=== PATIENT | male | born 1980 | race Two or more races ===

== ENCOUNTER 2020-04-22 18:44 | Emergency (ER) | payer SELFPAY ==
[~2020-04-22] VITALS: Ht 167.6 cm; Wt 82.7 kg
[2020-04-22] MEDS ORDERED: ACETAMINOPHEN 500 MG TABLET PO ONE (20:30)
[2020-04-22] MEDS ORDERED: predniSONE 20 MG TABLET PO ONE (20:30)
[2020-04-22 20:44] LABS: BASO % 1 % (0-3); EOS % 0 % (0-3); HEMATOCRIT 46.5 % (39.0-53.0); HEMOGLOBIN 16.4 g/dL (13.0-17.5); LYMPH # 0.8 x10^3/uL (1.0-4.8); LYMPH % 21 % (24-48); MEAN CORPUSCULAR HEMOGLOBIN 31 pg (25-35); MEAN CORPUSCULAR HGB CONC 35 g/dL (31-37); MEAN CORPUSCULAR VOLUME 88 fL (79-100); MONO # 0.4 x10^3/uL (0.0-1.1); MONO % 10 % (0-9); NEUT # 2.4 x10^3/uL (1.8-7.7); NEUT % 68 % (31-73); PLATELET COUNT 160 x10^3/uL (140-400); RED BLOOD COUNT 5.29 x10^6/uL (4.30-5.70); RED CELL DISTRIBUTION WIDTH 12.8 % (11.5-14.5); WHITE BLOOD COUNT 3.5 x10^3/uL (4.0-11.0)
[2020-04-22 20:52] LABS: CALCIUM 8.5 mg/dL (8.5-10.1); CREATININE 0.8 mg/dL (0.7-1.3); GFR 108.2; POTASSIUM 3.7 mmol/L (3.5-5.1)
[2020-04-22 20:57] LABS: ALBUMIN 3.7 g/dL (3.4-5.0); TOTAL BILIRUBIN 0.5 mg/dL (0.2-1.0); TOTAL PROTEIN 7.5 g/dL (6.4-8.2)
--- NOTE | 2020-04-22 20:57 | RAD ---
AP chest x-ray HISTORY: Cough. FINDINGS: Heart size normal. Mediastinal silhouette is normal. No pneumothorax, pulmonary opacities or pleural effusions. Bones are unremarkable. IMPRESSION: No acute process evident. Electronically signed by: Regan Diaz MD (04/22/2020 8:54 PM) [facility]
[2020-04-22 21:45] VITALS: BP 120/72
[2020-04-22] MEDS ORDERED: CHOL40003 PO (21:45)
[2020-04-22] MEDS ORDERED: PRED50TA PO (21:45)
[2020-04-22] MEDS ORDERED: ASCO500C PO (21:45)
[2020-04-22] MEDS ORDERED: ZINC50TA39 PO (21:45)
--- NOTE | 2020-04-22 21:46 | PHYS DOC ---
Past Medical History Past Medical History: No Pertinent History Past Surgical History: No Surgical History Smoking Status: Current Some Day Smoker Alcohol Use: Occasionally General Adult EDM: Chief Complaint: FEVER HPI: HPI: Patient is a 39 year old male with no significant medical history presents the ED today complaining of fever, cough, body aches, chills, symptoms began on Monday. 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 Review of Systems: Review of Systems: Constitutional: Reports fevers, body aches, chills Eyes: Denies change in visual acuity. [] HENT: Denies nasal congestion or sore throat. [] Respiratory: Reports cough, denies shortness of breath. [] Cardiovascular: Denies chest pain or edema. [] GI: Denies abdominal pain, nausea, vomiting, bloody stools or diarrhea. [] : Denies dysuria. [] Musculoskeletal: Denies back pain or joint pain. [] Integument: Denies rash. [] Neurologic: Denies headache, focal weakness or sensory changes. [] Psychiatric: Denies depression or anxiety. [] Heart Score: Risk Factors: Risk Factors: DM, Current or recent (<one month) smoker, HTN, HLP, family history of CAD, obesity. Risk Scores: Score 0 - 3: 2.5% MACE over next 6 weeks - Discharge Home Score 4 - 6: 20.3% MACE over next 6 weeks - Admit for Clinical Observation Score 7 - 10: 72.7% MACE over next 6 weeks - Early Invasive Strategies Current Medications: Current Medications Medications (Trade) Dose Ordered Sig/[facility] Start Time Stop Time Status Last Admin Dose Admin Acetaminophen (Tylenol) 1,000 mg 1X ONCE 04/22/20 20:30 04/22/20 20:38 DC 04/22/20 20:57 1,000 MG Prednisone (Prednisone) 60 mg 1X ONCE 04/22/20 20:30 04/22/20 20:38 DC 04/22/20 20:57 60 MG Allergies: Allergies: Allergies Coded Allergies Type Severity Reaction Last Updated Verified No Known Drug Allergies 04/22/20 No Physical Exam: PE: Constitutional: Well developed, well nourished, no acute distress, non-toxic appearance. [] HENT: Normocephalic, atraumatic, bilateral external ears normal, oropharynx moist, no oral exudates, nose normal. [] Eyes: PERRLA, EOMI, conjunctiva normal, no discharge. [] Neck: Normal range of motion, no tenderness, supple, no stridor. [] Cardiovascular:Heart rate regular rhythm, no murmur [] Lungs & Thorax: Bilateral breath sounds clear to auscultation [] Abdomen: Bowel sounds normal, soft, no tenderness, no masses, no pulsatile masses. [] Skin: Warm, dry, no erythema, no rash. [] Back: No tenderness, no CVA tenderness. [] Extremities: No tenderness, no cyanosis, no clubbing, ROM intact, no edema. [] Neurologic: Alert and oriented X 3, normal motor function, normal sensory function, no focal deficits noted. [] Psychologic: Affect normal, judgement normal, mood normal. [] Current Patient Data: Labs: Laboratory Tests Test 04/22/20 20:30 04/22/20 20:52 White Blood Count 3.5 x10^3/uL (4.0-11.0) L Red Blood Count 5.29 x10^6/uL (4.30-5.70) Hemoglobin 16.4 g/dL (13.0-17.5) Hematocrit 46.5 % (39.0-53.0) Mean Corpuscular Volume 88 fL (79-100) Mean Corpuscular Hemoglobin 31 pg (25-35) Mean Corpuscular Hemoglobin Concent 35 g/dL (31-37) Red Cell Distribution Width 12.8 % (11.5-14.5) Platelet Count 160 x10^3/uL (140-400) Neutrophils (%) (Auto) 68 % (31-73) Lymphocytes (%) (Auto) 21 % (24-48) L Monocytes (%) (Auto) 10 % (0-9) H Eosinophils (%) (Auto) 0 % (0-3) Basophils (%) (Auto) 1 % (0-3) Neutrophils # (Auto) 2.4 x10^3/uL (1.8-7.7) Lymphocytes # (Auto) 0.8 x10^3/uL (1.0-4.8) L Monocytes # (Auto) 0.4 x10^3/uL (0.0-1.1) Eosinophils # (Auto) 0.0 x10^3/uL (0.0-0.7) Basophils # (Auto) 0.0 x10^3/uL (0.0-0.2) Sodium Level 135 mmol/L (136-145) L Potassium Level 3.7 mmol/L (3.5-5.1) Chloride Level 99 mmol/L (98-107) Carbon Dioxide Level 26 mmol/L (21-32) Anion Gap 10 (6-14) Blood Urea Nitrogen 13 mg/dL (8-26) Creatinine 0.8 mg/dL (0.7-1.3) Estimated GFR (Cockcroft-Gault) 108.2 BUN/Creatinine Ratio 16 (6-20) Glucose Level 152 mg/dL (70-99) H Calcium Level 8.5 mg/dL (8.5-10.1) Total Bilirubin 0.5 mg/dL (0.2-1.0) Aspartate Amino Transferase (AST) 27 U/L (15-37) Alanine Aminotransferase (ALT) 39 U/L (16-63) Alkaline Phosphatase 90 U/L (46-116) Total Protein 7.5 g/dL (6.4-8.2) Albumin 3.7 g/dL (3.4-5.0) Albumin/Globulin Ratio 1.0 (1.0-1.7) Procalcitonin < 0.10 ng/mL (0.00-0.10) Lactic Acid Level 1.1 mmol/L (0.4-2.0) Laboratory Tests 04/22/20 20:30 Laboratory Tests 04/22/20 20:30 Vital Signs: Vital Signs Date Time Temp Pulse Resp B/P (MAP) Pulse Ox O2 Delivery O2 Flow Rate FiO2 04/22/20 19:19 101.5 119 24 137/82 (100) 95 Room Air 101.5 EKG: EKG: [] Radiology/Procedures: Radiology/Procedures: []PROCEDURE: CHEST AP ONLY AP chest x-ray HISTORY: Cough. FINDINGS: Heart size normal. Mediastinal silhouette is normal. No pneumothorax, pulmonary opacities or pleural effusions. Bones are unremarkable. IMPRESSION: No acute process evident. Electronically signed by: Regan Diaz MD (04/22/2020 8:54 PM) [facility] [place] DICTATED and SIGNED BY: REGAN DIAZ MD DATE: 04/22/202053 Course & Med Decision Making: Course & Med Decision Making Pertinent Labs and Imaging studies reviewed. (See chart for details) This is a 39-year-old male patient presenting to the ED today complaining of fevers, body aches, chills, cough, symptoms began 3 days ago. White count 3.5, chest x-ray negative for pneumonia or any acute findings, CMP with no acute findings. Temperature 101.5 on arrival to the ED. Patient was tested for COVID19. Results will be called to him. He was instructed to quarantine himself until he hears from us. Supportive care measures recommended. Dragon Disclaimer: Dragon Disclaimer: This electronic medical record was generated, in whole or in part, using a voice recognition dictation system. Departure Departure Impression: Primary Impression: Person under investigation for COVID-19 Additional Impressions: Fever Qualified Codes: R50.9 - Fever, unspecified Cough Disposition: HOME, SELF-CARE Condition: STABLE Referrals: NO PCP (PCP) follow up with your doctor in 1-2 weeks Patient Instructions: Cough, Adult, Fever, Adult Additional Instructions: You were evaluated in the emergency room and noted to be having symptoms suspicious of COVID19. We tested you for the disease. Current and yourself until you hear from us. We will call you with the results in the course of this week. In the meantime rest, push fluids, maintain good and hygiene, take the prescribed medications as ordered. Scripts Ascorbic Acid (VITAMIN C) 500 Mg Capsule.er 500 MG PO DAILY, #10 CAP.SR Prov: ALMAZ GONSALEZ APRN 04/22/20 Cholecalciferol (Vitamin D3) (Vitamin D3) 100 Mcg Capsule 100 MCG PO DAILY, #10 CAP Prov: ALMAZ GONSALEZ APRN 04/22/20 Prednisone (PREDNISONE) 50 Mg Tablet 1 TAB PO DAILY, #5 TAB Prov: ALMAZ GONSALEZ APRN 04/22/20 Zinc (ZINC) 50 Mg Tablet 1 TAB PO DAILY for 10 Days, #10 TAB 0 Refills Prov: ALMAZ GONSALEZ APRN 04/22/20 Justicifation of Admission Dx: Justifications for Admission: Justification of Admission Dx: N/A ALMAZ GONSALEZ APRN Apr 22, 2020 21:46
--- NOTE | 2020-04-24 09:51 | NUR ---
IP: Informed pt of positive COVID test and need to quarantine for 14 days. Answered all questions. Pt verbalized understanding.
== END 2020-04-22 21:57 | disposition home or self-care (01) ==
LOC: ER 18:44
DX: U07.1 COVID-19 (principal); R50.9 Fever, unspecified; R05 Cough; Z87.891 Personal history of nicotine dependence
CPT/HCPCS: 36415; 71045; 80053; 83605; 84145; 85025; 87040; 99284; C9803; J7512; U0003